=== PATIENT | female | born 1960 | race Caucasian/White ===

== ENCOUNTER 2018-09-27 09:56 | Emergency (ER) | payer OTHER ==
[2018-09-27 10:09] VITALS: BP 111/77; TEMP 98.8; BMI 32.6
--- NOTE | 2018-09-27 11:30 | CT ---
Exam: CTA chest with intravenous contrast, PE protocol with 3-D MIP reformatted images. Comparison: None available. Reason for exam: Pain. FINDINGS: The no pleural effusion, or focal consolidation in the partially imaged lung bases. The aorta is normal in course and caliber. The heart is not enlarged. The thyroid appears grossly unremarkable. No main, proximal, or segmental pulmonary arterial filling defect is seen. No suspicious appearing osteoblastic or osteolytic lesion. Impression: 1. No main, proximal, or segmental pulmonary arterial filling defect is seen. 2. No acute imaging findings are seen within the thorax
--- NOTE | 2018-09-27 11:51 | ED.PDOC ---
General ED Provider: Dr. TEZ AGUDELO Chief Complaint: Palpitations Stated Complaint: palpitation Time Seen by Physician: 10:00 Mode of Arrival: Walk-In Information Source: Patient Exam Limitations: No limitations Primary Care Provider: MACIE DUARTE Nursing and Triage Documentation Reviewed and Agree: Yes Does patient meet sepsis criteria?: No System Inflammatory Response Syndrome: Not Applicable Sepsis Protocol: For patient's 13 years and over: Temp is 96.8 and below OR 101 and greater Pulse >90 BPM Resp >20/minute Acutely Altered Mental Status Are patient's symptoms suggestive of a new infection, such as: -Pneumonia -Skin, Soft Tissue -Endocarditis -UTI -Bone, Joint Infection -Implantable Device -Acute Abdominal Infection -Wound Infection -Meningitis -Blood Stream Catheter Infection -Unknown Cardiovascular Complaint Exam - Palpitations Complaint/Exam Symptoms Are: Still present Timing: Intermittent Initial Severity: Mild Current Severity: None Aggravating: Reports: None Alleviating: Reports: None Associated Signs and Symptoms: Denies: Lightheadedness, Dizziness, Syncope, Chest pain, Shortness of breath, Diaphoresis, Nausea, Vomiting Related History: Similar episode Related Surgical History: Reports: None Cardiac Risk Factors: Reports: Hypertension, Elevated lipids Pulmonary Embolism Risk Factors: Reports: None Atrial Fibrillation Risk Factors: Reports: None Thyroid Exam: Normal Quality Indicators for AMI: EKG in 10min. Quality Indicators for Cardiac Chest Pain: EKG in 10min. Quality Indicator For Non-Traumatic Chest Pain/Syncope: EKG Performed Review of Systems - Review Of Systems Constitutional: Reports: No symptoms Eyes: Reports: No symptoms Ears, Nose, Mouth, Throat: Reports: No symptoms Respiratory: Reports: No symptoms Cardiac: Reports: No symptoms GI: Reports: No symptoms : Reports: No symptoms Musculoskeletal: Reports: No symptoms Skin: Reports: No symptoms Neurological: Reports: No symptoms Endocrine: Reports: No symptoms Hematologic/Lymphatic: Reports: No symptoms All Other Systems: Reviewed and Negative Past Medical History - Past Medical History Previously Healthy: Yes Endocrine: Reports: Dyslipidemia Cardiovascular: Reports: Hypertension Respiratory: Reports: None Hematological: Reports: None Gastrointestinal: Reports: None Genitourinary: Reports: None Neuro/Psych: Reports: None Musculoskeletal: Reports: Arthritis (mobic for RA hands) Cancer: Reports: None Last Menstrual Period: unknown Other Pertinent Past Medical History: htn chol arth gb btl - Surgical History General Surgical History: Reports: Tubal ligation, Cholecystectomy - Family History Family History: Reports: Unknown - Social History Smoking Status: Never smoker Hx Substance Use: No Alcohol Screening: None Physical Exam - Physical Exam Appearance: Well-appearing, No pain distress, Well-nourished Eyes: PETE, EOMI, Conjunctiva clear ENT: Ears normal, Nose normal, Oropharynx normal Respiratory: Airway patent, Breath sounds clear, Breath sounds equal, Respirations nonlabored Cardiovascular: RRR, Pulses normal, No rub, No murmur GI/: Soft, Nontender, No masses, Bowel sounds normal, No Organomegaly Musculoskeletal: Normal strength, ROM intact, No edema, No calf tenderness Skin: Warm, Dry, Normal color Neurological: Sensation intact, Motor intact, Reflexes intact, Cranial nerves intact, Alert, Oriented Psychiatric: Affect appropriate, Mood appropriate Interpretation - Radiology Interpretation Radiology Interpretation By: Radiologist Radiology Results: No acute changes Exam Interpreted: 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 Rate: Normal Rhythm: Sinus Ectopy: None - EKG Interpretation Rate: Normal Rhythm: Sinus Ectopy: None [place]: Left ST Segment: Normal Critical Care Note - Critical Care Note Total Time (mins): 0 Course - Course Hematology/Chemistry: 09/27/18 10:08 09/27/18 10:08 Orders, Labs, Meds: Lab Review 09/27/18 09/27/18 10:08 10:08 WBC 7.25 RBC 4.84 Hgb 13.5 Hct 38.5 MCV 79.5 L MCH 27.9 MCHC 35.1 RDW Coeff of Briseida 12.4 Plt Count 313 Immature Gran % (Auto) 0.8 Neut % (Auto) 75.8 Lymph % (Auto) 17.1 [place] % (Auto) 5.4 Eos % (Auto) 0.6 Baso % (Auto) 0.3 Immature Gran # (Auto) 0.1 Neut # (Auto) 5.5 Lymph # (Auto) 1.2 [place] # (Auto) 0.4 Eos # (Auto) 0.0 Baso # (Auto) 0.0 Sodium 130.4 L Potassium 3.39 L Chloride 89.4 L Carbon Dioxide 25.6 Anion Gap 18.79 BUN 16.0 Creatinine 1.03 Estimated GFR (MDRD) 55.00 BUN/Creatinine Ratio 15.53 Glucose 112.4 H Calcium 10.10 Total Bilirubin 0.78 AST 28.1 ALT 13.5 Alkaline Phosphatase 181.0 H Total Creatine Kinase 59.9 Troponin I < 0.012 Total Protein 8.23 H Albumin 4.78 Globulin 3.45 Albumin/Globulin Ratio 1.38 Orders Category Date Time Status EKG-(ED ONLY) Stat CARDIO 09/27/18 10:10 Completed NPO REMINDER: IMAGING ONCE CARE 09/27/18 10:09 Completed CBC W/ AUTO DIFF Stat LAB 09/27/18 10:08 Completed COMPREHENSIVE METABOLIC PANEL Stat LAB 09/27/18 10:08 Completed CREATINE KINASE Stat LAB 09/27/18 10:08 Completed TROPONIN I Stat LAB 09/27/18 10:[address] CHEST PE PROTOCOL Stat RADS 09/27/18 10:09 Completed Vital Signs: Temp Pulse Resp BP Pulse Ox 09/27/18 09:57 98.8 F 94 H 20 111/77 98 ADOLFO Risk Score ADOLFO Risk Score: Risk Score Odds of by 30D 0 0.1 (0.1-0.2) 1 0.3 (0.2-0.3) 2 0.4 (0.3-0.5) 3 0.7 (0.6-0.9) 4 1.2 (1.0-1.5) 5 2.2 (1.9-2.6) 6 3.0 (2.5-3.6) 7 4.8 (3.8-6.1) Departure - Departure Time of Disposition: 11:51 Disposition: HOME SELF-CARE Discharge Problem: Palpitations Instructions: Heart Palpitations (ED) Condition: Good Pt referred to PMD for follow-up: Yes IPMP verified?: No Allergies/Adverse Reactions: Allergies Penicillins Adverse Reaction (Verified 09/27/18 10:28) Home Medications: Ambulatory Orders Atorvastatin Calcium [Lipitor] 40 mg PO DAILY 04/02/16 Cyclobenzaprine HCl [Flexeril] 10 mg PO TID PRN 04/02/16 Lisinopril/Hydrochlorothiazide [Lisinopril-Hctz 20-25 mg Tab] 1 each PO DAILY Cetirizine HCl [Zyrtec] 10 mg PO BEDTIME 09/27/18 Glucosam/Chondr/Collagn/Hyalur [Glucosamine & Chondroitin Cap] 1 each PO BID Montelukast Sodium [Singulair] 10 mg PO BEDTIME 09/27/18
--- NOTE | 2018-09-29 12:22 | HOLTER ---
PATIENT INFORMATION AND COMMENTS Attending Physician: DR. MACIE DUARTE Indications: PALPITATIONS __ Patient Medications: ZYRTEC, SINGULAIR, ZESTORETIC, FLEXERIL __ Pre-procedure Summary: Protocol: Standard Heart Rate Started: 09/27/18 1222 Minimum: 50 BPM Weight: 190 LBS Ended: 09/28/18 1209 Maximum: 113 BPM Height: 64" Duration: 24 HOURS Average: 78 BPM _ INTERPRETATIONS/OBSERVATIONS: 1. BASIC RHYTHM: SINUS, RATE 50 BPM TO 115 BPM, AVERAGE 80 BPM 2. RARE PAC'S AND PVC'S 3. TWO SHORT RUNS OF SVT/ PAT CONSISTING OF FIVE BEATS AT A RATE OF 130/BPM 4. NO ST-WAVE CHANGES FROM BASELINE 5. ACTIVITY LOG NOT AVAILABLE MTDD
== END 2018-09-27 12:36 | disposition home or self-care (01) ==
LOC: ED 09:56
DX: R00.2 Palpitations (principal); I10 Essential (primary) hypertension; E78.5 Hyperlipidemia, unspecified; M06.9 Rheumatoid arthritis, unspecified; Z79.899 Other long term (current) drug therapy
CPT/HCPCS: 36415; 80053; 82550; 84484; 85025; 93005; 93010; 99283